=== PATIENT | female | born 1980 | race Hispanic/Latino ===

== ENCOUNTER 2017-10-22 00:22 | Observation (INO) | payer MEDICAID ==
[~2017-10-22] VITALS: Ht 160 cm; Wt 93.4 kg
== END 2017-10-22 01:35 | disposition home or self-care (01) ==
LOC: EDH 00:22 → LDH 00:23
PROVIDERS: ADMIT Obstetrics & Gynecology; ATTEND Obstetrics & Gynecology
DX: O36.8130 Decreased fetal movements, third trimester, not applicable or unspecified (principal); Z3A.38 38 weeks gestation of pregnancy
CPT/HCPCS: 59025; 99285; G0378

== ENCOUNTER 2019-01-30 15:40 | Inpatient (IN) | payer SELFPAY ==
[~2019-01-30] VITALS: Ht 160 cm; Wt 83.5 kg
[2019-01-30 16:29] LABS: BASOPHILS % (AUTO) 0.2 % (0.0-5.0); LYMPHOCYTES % (AUTO) 3.3 % (21.0-51.0); MEAN CORPUSCULAR HEMOGLOBIN 31.6 pg (27.0-33.0); MEAN CORPUSCULAR HGB CONC 33.2 g/dL (32.0-36.0); MEAN CORPUSCULAR VOLUME 95.2 fL (79-99); MONOCYTES % (AUTO) 4.8 % (3.0-13.0); NEUTROPHILS % (AUTO) 91.7 % (40.0-77.0); PLATELET COUNT (AUTO) 190 K/uL (130-400); RED BLOOD CELL COUNT(AUTO) 5.36 MIL/uL (4.00-5.50); RED CELL DISTRIBUTION WIDTH 13.1 % (11.0-15.5); WHITE BLOOD COUNT (AUTO) 17.8 K/uL (4.8-10.8)
[2019-01-30 16:45] LABS: POTASSIUM 4.4 mmol/L (3.5-5.1)
[2019-01-30 16:49] LABS: ALBUMIN 4.3 g/dL (3.5-5.0); BILIRUBIN,TOTAL 0.5 mg/dL (0.2-1.0); TOTAL PROTEIN, SERUM 8.4 g/dL (6.0-8.3)
[2019-01-30] MEDS ORDERED: ONDANSETRON HCL 4 MG/2 ML VIAL ONE (17:26)
[2019-01-30] MEDS ORDERED: SODIUM CHLORIDE 0.9% 1000ML 1,000 ML IV ONE ×2 (17:26→19:58)
[2019-01-30] MEDS ORDERED: MORPHINE SULFATE 4 MG/1ML SYG ONE (17:26)
[2019-01-30] MEDS ORDERED: IOHEXOL-350 75 ML VIAL IV ONE (17:26)
[2019-01-30] MEDS ORDERED: LEVOFLOXACIN 750 MG/D5W 150 ML 150 ML ONE (18:51)
[2019-01-30] MEDS ORDERED: ONDANSETRON HCL 4 MG/2 ML VIAL IVP PRN (19:30)
[2019-01-30] MEDS ORDERED: ACETAMINOPHEN 325 MG TAB PO PRN (19:30)
[2019-01-30] MEDS ORDERED: HYDRALAZINE HCL 20 MG/ML VIAL IV PRN (19:30)
[2019-01-30 21:00] VITALS: BP 115/72
[2019-01-30 21:08] LABS: APPEARANCE,URINE CLEAR (CLEAR); BILIRUBIN,URINE NEGATIVE (NEGATIVE); COLOR,URINE YELLOW (YELLOW); GLUCOSE, URINE (UA) NEGATIVE (NEGATIVE); KETONES,URINE NEGATIVE (NEGATIVE); LEUKOCYTE ESTERASE ,URINE NEGATIVE (NEGATIVE); NITRATE,URINE NEGATIVE (NEGATIVE); OCCULT BLOOD,URINE SMALL (NEGATIVE); PROTEIN,URINE NEGATIVE (NEGATIVE); UROBILINOGEN,URINE 0.2 mg/dL (0.2-1.0)
[2019-01-30 21:20] LABS: BACTERIA,URINE Rare /HPF (None Seen); RBC,URINE 0-1 /HPF (0-1); WBC,URINE 0-1 /HPF (0-1)
[2019-01-30 21:21] LABS: SQUAMOUS EPITHELIAL CELL,UR Few /HPF (0-2)
[2019-01-30 21:27] LABS: HCG,QUAL RESULT NEGATIVE (NEGATIVE)
[2019-01-30] MEDS: METRONIDAZOLE 500MG/100ML BAG 100 ML IVPB SCH (21:46)
[2019-01-30] MEDS: MORPHINE SULFATE 4 MG/1ML SYG IVP PRN (21:46)
[2019-01-30] MEDS: LACTATED RINGERS 1000ML 1,000 ML IV SCH (21:47)
[2019-01-30 23:10] VITALS: BP 116/63
[2019-01-30 23:20] VITALS: BP_SYST 116; BP_SYST 157; BP_DIAS 63; BP_DIAS 99
[2019-01-31 03:20] VITALS: BP 125/70
[2019-01-31] MEDS: MORPHINE SULFATE 4 MG/1ML SYG IVP PRN (05:20)
[2019-01-31] MEDS: METRONIDAZOLE 500MG/100ML BAG 100 ML IVPB SCH ×3 (05:20→21:28)
[2019-01-31] MEDS: LACTATED RINGERS 1000ML 1,000 ML IV SCH ×3 (05:21→16:34)
[2019-01-31 07:00] VITALS: BP 112/72
[2019-01-31] MEDS ORDERED: CIPROFLOXACIN HCL 500 MG TABLET PO SCH (09:00)
[2019-01-31] MEDS: PANTOPRAZOLE 40 MG/VIAL IVP SCH (09:40)
[2019-01-31] MEDS: MORPHINE SULFATE 2 MG/ML 1ML SYG IVP PRN ×3 (09:50→21:29)
[2019-01-31 11:00] VITALS: BP 116/73
[2019-01-31 16:00] VITALS: BP 116/82
--- NOTE | 2019-01-31 16:27 | NUR ---
cm note met with patient and states resides athome with spouse and family, pt independent with ambulationa and adls. no dme. 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 provided with list of low income clinics in the area. and also rx assist information. pt verbalizes understanding of importance of follwup care. Addendum: 01/31/19 at 1629 by RONNIE GONZALEZ CM Amended: Links added.
[2019-01-31] MEDS: LEVOFLOXACIN 750 MG/D5W 150 ML 150 ML IV SCH (16:34)
[2019-01-31 19:25] VITALS: BP 119/59
[2019-01-31 23:21] VITALS: BP 122/64
[2019-02-01] MEDS: LACTATED RINGERS 1000ML 1,000 ML IV SCH ×2 (01:54→11:42)
[2019-02-01] MEDS: MORPHINE SULFATE 2 MG/ML 1ML SYG IVP PRN (01:54)
[2019-02-01 03:16] VITALS: BP 15/70
[2019-02-01 04:25] LABS: HEMATOCRIT 35.2 % (36-48); MEAN CORPUSCULAR HEMOGLOBIN 32.6 pg (27.0-33.0); MEAN CORPUSCULAR HGB CONC 35.2 g/dL (32.0-36.0); MEAN CORPUSCULAR VOLUME 92.7 fL (79-99); PLATELET COUNT (AUTO) 97 K/uL (130-400); RED CELL DISTRIBUTION WIDTH 12.7 % (11.0-15.5); WHITE BLOOD COUNT (AUTO) 8.4 K/uL (4.8-10.8)
[2019-02-01 04:47] LABS: CREATININE 0.5 mg/dL (0.5-1.5); POTASSIUM 3.2 mmol/L (3.5-5.1)
[2019-02-01] MEDS: METRONIDAZOLE 500MG/100ML BAG 100 ML IVPB SCH ×2 (06:06→11:43)
[2019-02-01 07:30] VITALS: BP 108/57
[2019-02-01] MEDS: PANTOPRAZOLE 40 MG/VIAL IVP SCH (08:05)
[2019-02-01 11:00] VITALS: BP 110/59
--- NOTE | 2019-02-01 12:44 | NUR ---
ROUNDS VISITED WITH PATIENT. POC DISCUSSED. NEW ORDERS RECEIVED. DIET ORDERED PER MD. PATIENT AWARE. CALL LIGHT WITHIN REACH. WILL CONTINUE TO BE OBSERVED. Addendum: 02/01/19 at 1245 by LIEN HAND RN RN Amended: Links added.
[2019-02-01] MEDS: LEVOFLOXACIN 750 MG/D5W 150 ML 150 ML IV SCH (16:07)
== END 2019-02-01 18:30 | disposition home or self-care (01) | DRG 392 ==
LOC: EDH 15:40 → EDHIP 15:41 → OBSVTOIN 15:41 → 4BH 20:37
PROVIDERS: ADMIT Internal Medicine Critical Care Medicine; ATTEND Internal Medicine Critical Care Medicine
DX: R10.31 Right lower quadrant pain (principal); E66.9 Obesity, unspecified; Z68.32 Body mass index [BMI] 32.0-32.9, adult; Z90.49 Acquired absence of other specified parts of digestive tract
CPT/HCPCS: 36415; 74177; 80048; 80053; 81001; 81025; 83690; 84702; 85025; 85027; 87040; 93005; C9113; G0378; J1956; J2270; J2405; J3490; J7030; J7120; Q9967